=== PATIENT | female | born 1960 | race African-American/Black ===

== ENCOUNTER 2021-10-11 18:53 | Emergency (ER) | payer OTHER ==
[~2021-10-11] VITALS: Ht 163.8 cm; Wt 72.7 kg
[2021-10-11 20:25] LABS: COVID AG,FIA SOURCE NASOPHARYNGEAL
[2021-10-11 23:12] VITALS: BP 144/95
== END 2021-10-11 23:13 | disposition home or self-care (01) ==
LOC: EMS 18:59
DX: J18.9 Pneumonia, unspecified organism (principal); Z20.822 Contact with and (suspected) exposure to COVID-19
CPT/HCPCS: 71045; 87426; 99284; U0003

== ENCOUNTER 2022-11-26 17:22 | Emergency (ER) | payer OTHER ==
[~2022-11-26] VITALS: Ht 162.6 cm; Wt 68.2 kg
[2022-11-26 18:02] LABS: COVID AG,FIA SOURCE NASOPHARYNGEAL
[2022-11-26] MEDS ORDERED: NIRM1TAB PO (19:59)
[2022-11-26 20:00] VITALS: BP 135/99
== END 2022-11-26 21:00 | disposition home or self-care (01) ==
LOC: EMS 17:38
DX: U07.1 COVID-19 (principal); F17.210 Nicotine dependence, cigarettes, uncomplicated; Z90.710 Acquired absence of both cervix and uterus; C80.1 Malignant (primary) neoplasm, unspecified; Z88.5 Allergy status to narcotic agent
CPT/HCPCS: 71045; 99284

== ENCOUNTER 2024-10-30 06:32 | Inpatient (IN) | payer MEDICARE, OTHER ==
[~2024-10-30] VITALS: Ht 157.5 cm; Wt 61.9 kg
[~2024-10-30 06:32] MED LIST: NIRM1TAB4 PO
[2024-10-30 06:59] LABS: COVID AG,FIA SOURCE NASAL SWAB
[2024-10-30] MEDS ORDERED: 0.9% SODIUM CHLORIDE 5 ML NEB SOLUTION NEB ONE (07:12)
[2024-10-30] MEDS: ALBUTEROL SULFATE 2.5 MG/0.5 ML NEB SOLUTION NEB ONE (07:14)
[2024-10-30] MEDS: IPRATROPIUM BROMIDE 0.5 MG/2.5 ML NEB SOLUTION NEB ONE (07:14)
[2024-10-30 07:15] VITALS: PULSE 81; RESP 22; O2SAT 93
[2024-10-30 07:19] LABS: BASOPHILS % (AUTO) 0.8 % (0.0-2.0); EOSINOPHILS % (AUTO) 3.2 % (1.0-6.0); HEMATOCRIT 36.2 % (36-46); HEMOGLOBIN 11.8 g/dL (12.0-16.0); LYMPHOCYTES # (AUTO) 2.4 K/uL (1.0-4.8); LYMPHOCYTES % (AUTO) 38.7 % (22.0-44.0); MEAN CORPUSCULAR HEMOGLOBIN 27.9 pg (26.0-34.0); MEAN CORPUSCULAR HGB CONC 32.7 G/dL (31.0-37.0); MEAN CORPUSCULAR VOLUME 85 fL (80-100); MONOCYTES # (AUTO) 0.5 K/uL (0.1-1.0); MONOCYTES % (AUTO) 7.4 % (2.0-9.0); NEUTROPHILS # (AUTO) 3.1 K/uL (1.8-7.7); NEUTROPHILS % (AUTO) 49.9 % (40.0-70.0); PLATELET COUNT (AUTO) 318 K/uL (150-450); RED BLOOD CELL COUNT(AUTO) 4.24 MIL/uL (4.00-5.20); RED CELL DISTRIBUTION WIDTH 15.1 % (11.5-14.5); WHITE BLOOD COUNT (AUTO) 6.1 K/uL (4.5-11.0)
[2024-10-30 07:22] LABS: INFLUENZA TYPE A NEGATIVE FOR TYPE A (NEGATIVE); INFLUENZA TYPE B NEGATIVE FOR TYPE B (NEGATIVE); SARS-COV2 (COVID) ANTIGEN,FIA Negative (Negative)
[2024-10-30 07:27] VITALS: PULSE 80; RESP 22; O2SAT 100
[2024-10-30 07:31] LABS: ANION GAP 11 mmol/L (8-16); CALCIUM, TOTAL 8.7 mg/dL (8.8-10.5); CARBON DIOXIDE 28 mmol/L (22-29); CHLORIDE 104 mmol/L (98-107); CREATININE 0.86 mg/dL (0.60-1.30); GLOMERULAR FILTR. RATE CALC > 60 mL/min (>60); GLUCOSE,RANDOM 96 mg/dL (70-110); POTASSIUM 3.8 mmol/L (3.5-5.1); SODIUM SERUM 143 mmol/L (136-145); UREA NITROGEN, BLOOD 12 mg/dL (7-18)
[2024-10-30 07:36] LABS: TROPONIN I-HIGH SENSITIVITY 118 ng/L (<51)
[2024-10-30 07:40] LABS: PROTHROMBIN TIME 10.9 SEC (9.4-11.6)
[2024-10-30 07:54] LABS: CREATINE KINASE, TOTAL ONLY 99 U/L (26-192)
[2024-10-30 07:55] LABS: B-TYPE NATRIURETIC PEPTIDE 464 pg/mL (0-100)
[2024-10-30] MEDS: NITROGLYCERIN 2% (1 GM=INCH) OINTMENT PACKET TP ONE (08:20)
[2024-10-30] MEDS: FUROSEMIDE 40 MG/4 ML VIAL IVP ONE (08:20)
[2024-10-30] MEDS: ASPIRIN 81 MG CHEWABLE TABLET PO ONE ×2 (08:20→12:01)
[2024-10-30] MEDS: MORPHINE SULFATE 2 MG/ML SYRINGE IVP ONE (08:51)
[2024-10-30] MEDS: LORazepam 1 MG TABLET PO ONE (08:51)
[2024-10-30] MEDS: ONDANSETRON HCL 4 MG/2 ML VIAL IVP ONE (08:54)
[2024-10-30 09:07] LABS: D-DIMER 0.68 mg/L FEU (0.00-0.50)
[2024-10-30] MEDS ORDERED: 0.9% SODIUM CHLORIDE 10 ML SYRINGE IVP PRN (09:15)
[2024-10-30] MEDS: SODIUM CHLORIDE 0.9% 250 ML IV ONE (09:15)
[2024-10-30 09:33] LABS: TROPONIN I-HIGH SENSITIVITY 147 ng/L (<51)
[2024-10-30 09:58] LABS: ANION GAP 6 mmol/L (8-16); CALCIUM, TOTAL 8.4 mg/dL (8.8-10.5); CARBON DIOXIDE 29 mmol/L (22-29); CHLORIDE 105 mmol/L (98-107); CREATININE 0.76 mg/dL (0.60-1.30); GLOMERULAR FILTR. RATE CALC > 60 mL/min (>60); GLUCOSE,RANDOM 107 mg/dL (70-110); POTASSIUM 3.7 mmol/L (3.5-5.1); SODIUM SERUM 140 mmol/L (136-145); UREA NITROGEN, BLOOD 13 mg/dL (7-18)
[2024-10-30 10:04] LABS: ALANINE AMINOTRANSFERASE 32 U/L (12-78); ALBUMIN 3.6 g/dL (3.4-5.0); ALKALINE PHOSPHATASE 102 U/L (46-116); ASPARTATE AMINOTRANSFERASE 26 U/L (15-37); BILIRUBIN,TOTAL 0.7 mg/dL (0.1-1.0); LACTATE DEHYDROGENASE 427 U/L (81-234); TOTAL PROTEIN, SERUM 7.6 g/dL (6.4-8.2)
[2024-10-30 10:07] LABS: TROPONIN I-HIGH SENSITIVITY 147 ng/L (<51)
[2024-10-30 11:59] LABS: LACTIC ACID 0.8 mmol/L (0.4-2.0)
[2024-10-30 15:06] VITALS: BP 127/77; PULSE 66; RESP 18; TEMP 98.2; O2SAT 96
[2024-10-30] MEDS ORDERED: ACETAMINOPHEN 325 MG TABLET PO PRN (15:15)
[2024-10-30] MEDS ORDERED: [UNRECOGNIZED DRUG - OTHER] PO SCH (15:15)
[2024-10-30 15:46] VITALS: BP 121/69; PULSE 78; RESP 17; TEMP 97.8; O2SAT 90
[2024-10-30] MEDS: CefTRIAXone 1 GM/DEXTROSE 50 ML IV SCH (17:44)
[2024-10-30] MEDS: HEPARIN SODIUM,PORCINE 5,000 UNITS/ML VIAL SQ SCH (17:45)
[2024-10-30] MEDS: AZITHROMYCIN 500 MG/NS 250 ML IV SCH (17:45)
[2024-10-30] MEDS: MORPHINE SULFATE 2 MG/ML SYRINGE IVP PRN (18:14)
[2024-10-30 19:56] VITALS: BP 108/64; PULSE 74; RESP 20; TEMP 98.4; O2SAT 95
[2024-10-30] MEDS: FUROSEMIDE 20 MG/2 ML VIAL IVP SCH (20:59)
[2024-10-31] VITALS (9 sets, daily range): BP systolic 112–129; BP diastolic 64–77; PULSE 75–92; RESP 16–20; TEMP 97.5–99.1; O2SAT 90–98
[2024-10-31] MEDS: IPRATROPIUM BROMIDE 0.5 MG/2.5 ML NEB SOLUTION NEB PRN (00:23)
[2024-10-31] MEDS: ALBUTEROL SULFATE 2.5 MG/0.5 ML NEB SOLUTION NEB PRN (00:23)
[2024-10-31 03:06] LABS: BASOPHILS %-(REF. LAB) 0 % (Not Estab.); EOSINOPHILS %-(REF. LAB) 3 % (Not Estab.); EOSINOPHILS ABSOLUTE(REF. LAB) 0.2 x10E3/uL (0.0-0.4); IMMATR GRANULOCYT %-(REF. LAB) 0 % (Not Estab.); LYMPHOCYTES %-(REF. LAB) 45 % (Not Estab.); MEAN CELL HEMOGLOB-(REF. LAB) 27.5 pg (26.6-33.0); MEAN CELL HGB CONC-(REF. LAB) 31.7 g/dL (31.5-35.7); MEAN CELL VOLUME-(REF. LAB) 87 fL (79-97); MONOCYTES %-(REF. LAB) 7 % (Not Estab.); MONOCYTES ABSOLUTE(REF. LAB) 0.4 x10E3/uL (0.1-0.9); NEUTOPHILS %-(REF. LAB) 45 % (Not Estab.); REDC DISTRIB. WIDTH-(REF. LAB) 13.7 % (11.7-15.4)
[2024-10-31 06:32] LABS: BASOPHILS % (AUTO) 0.5 % (0.0-2.0); EOSINOPHILS % (AUTO) 2.1 % (1.0-6.0); HEMATOCRIT 34.5 % (36-46); HEMOGLOBIN 11.2 g/dL (12.0-16.0); LYMPHOCYTES # (AUTO) 2.1 K/uL (1.0-4.8); LYMPHOCYTES % (AUTO) 33.3 % (22.0-44.0); MEAN CORPUSCULAR HEMOGLOBIN 28.1 pg (26.0-34.0); MEAN CORPUSCULAR HGB CONC 32.5 G/dL (31.0-37.0); MEAN CORPUSCULAR VOLUME 87 fL (80-100); MONOCYTES # (AUTO) 0.5 K/uL (0.1-1.0); MONOCYTES % (AUTO) 8.2 % (2.0-9.0); NEUTROPHILS # (AUTO) 3.5 K/uL (1.8-7.7); NEUTROPHILS % (AUTO) 55.9 % (40.0-70.0); PLATELET COUNT (AUTO) 321 K/uL (150-450); RED BLOOD CELL COUNT(AUTO) 3.99 MIL/uL (4.00-5.20); RED CELL DISTRIBUTION WIDTH 15.1 % (11.5-14.5); WHITE BLOOD COUNT (AUTO) 6.3 K/uL (4.5-11.0)
[2024-10-31 07:05] LABS: ANION GAP 6 mmol/L (8-16); CALCIUM, TOTAL 8.5 mg/dL (8.8-10.5); CARBON DIOXIDE 34 mmol/L (22-29); CHLORIDE 105 mmol/L (98-107); CHOL/HDL RATIO 2.4 (3.9-5.7); CHOLESTEROL 138 mg/dL (131-200); CREATININE 0.95 mg/dL (0.60-1.30); GLOMERULAR FILTR. RATE CALC > 60 mL/min (>60); GLUCOSE,RANDOM 92 mg/dL (70-110); HDL CHOLESTEROL 57 mg/dL (40-60); LDL CHOL (CALC.) 71 mg/dL (0-130); POTASSIUM 4.1 mmol/L (3.5-5.1); SODIUM SERUM 145 mmol/L (136-145); TRIGLYCERIDES 52 mg/dL (15-150); UREA NITROGEN, BLOOD 12 mg/dL (7-18)
[2024-10-31 07:09] LABS: TROPONIN I-HIGH SENSITIVITY 118 ng/L (<51)
[2024-10-31] MEDS: ASPIRIN 81 MG DR TABLET PO SCH (08:36)
[2024-10-31] MEDS: ATORVASTATIN CALCIUM 20 MG TABLET PO SCH (08:36)
[2024-10-31] MEDS: SPIRONOLACTONE 25 MG TABLET PO SCH (08:37)
[2024-10-31] MEDS: LOSARTAN POTASSIUM 25 MG TABLET PO SCH (08:38)
[2024-10-31] MEDS: METOPROLOL SUCCINATE 25 MG ER TABLET PO SCH (08:38)
[2024-10-31] MEDS ORDERED: ATORVASTATIN CALCIUM 40 MG TABLET PO SCH (09:00)
[2024-10-31] MEDS: BENZONATATE 100 MG CAPSULE PO SCH (09:29)
[2024-10-31] MEDS: HYDROmorphone HCL 2 MG/ML SYRINGE IVP ONE (09:29)
[2024-10-31 13:06] LABS: ABSOLUTE CD4 COUNT 1422 /uL (359-1519); ABSOLUTE CD8 SUPPRESSOR 380 /uL (109-897); CD4:CD8 RATIO 3.75 (0.92-3.72); PERCENT CD4 POS.LYMPH. 54.7 % (30.8-58.5); PERCENT CD8 POS. LYMPH. 14.6 % (12.0-35.5)
[2024-10-31] MEDS: DiphenhydrAMINE HCL 50 MG/ML VIAL IVP ONE (22:50)
[2024-11-01 07:38] LABS: BASOPHILS % (AUTO) 0.9 % (0.0-2.0); EOSINOPHILS % (AUTO) 2.6 % (1.0-6.0); HEMATOCRIT 35.8 % (36-46); HEMOGLOBIN 11.8 g/dL (12.0-16.0); LYMPHOCYTES # (AUTO) 2.8 K/uL (1.0-4.8); LYMPHOCYTES % (AUTO) 45.9 % (22.0-44.0); MEAN CORPUSCULAR HGB CONC 32.9 G/dL (31.0-37.0); MEAN CORPUSCULAR VOLUME 85 fL (80-100); MONOCYTES # (AUTO) 0.5 K/uL (0.1-1.0); MONOCYTES % (AUTO) 8.2 % (2.0-9.0); NEUTROPHILS # (AUTO) 2.6 K/uL (1.8-7.7); NEUTROPHILS % (AUTO) 42.4 % (40.0-70.0); PLATELET COUNT (AUTO) 315 K/uL (150-450); RED BLOOD CELL COUNT(AUTO) 4.22 MIL/uL (4.00-5.20); RED CELL DISTRIBUTION WIDTH 15.1 % (11.5-14.5); WHITE BLOOD COUNT (AUTO) 6.1 K/uL (4.5-11.0)
[2024-11-01 07:39] VITALS: BP 122/73; PULSE 74; RESP 20; TEMP 97.5; O2SAT 97
[2024-11-01 07:45] LABS: ANION GAP 6 mmol/L (8-16); CALCIUM, TOTAL 8.7 mg/dL (8.8-10.5); CARBON DIOXIDE 35 mmol/L (22-29); CHLORIDE 101 mmol/L (98-107); CREATININE 0.75 mg/dL (0.60-1.30); GLOMERULAR FILTR. RATE CALC > 60 mL/min (>60); GLUCOSE,RANDOM 90 mg/dL (70-110); POTASSIUM 4.2 mmol/L (3.5-5.1); SODIUM SERUM 141 mmol/L (136-145); UREA NITROGEN, BLOOD 15 mg/dL (7-18)
[2024-11-01] MEDS: FUROSEMIDE 20 MG TABLET PO SCH (08:43)
[2024-11-01] MEDS ORDERED: INFLUENZA VIRUS VACCINE TVS (6MO+) 2024-25/PF 45 MCG/0.5 ML SYRINGE IM. ONE (10:15)
[2024-11-01] MEDS: IBUPROFEN 400 MG TABLET PO ONE (10:55)
[2024-11-01] MEDS: EMPAGLIFLOZIN 10 MG TABLET PO SCH (10:56)
[2024-11-01 12:54] VITALS: O2SAT 95
[2024-11-01] MEDS: MethylPREDNISolone SOD SUCC 125 MG/2 ML VIAL IVP SCH (13:03)
[2024-11-01] MEDS ORDERED: SODIUM CHLORIDE 0.9% 500 ML IV ONE (16:19)
[2024-11-01 16:30] VITALS: BP 133/68; PULSE 75; RESP 18; TEMP 97.6; O2SAT 99
[2024-11-01] MEDS: ALBUTEROL SULFATE 2.5 MG/0.5 ML NEB SOLUTION NEB SCH (19:00)
[2024-11-01 20:13] VITALS: BP 142/62; PULSE 93; RESP 18; TEMP 98.1; O2SAT 97
[2024-11-01] MEDS: MORPHINE SULFATE 2 MG/ML SYRINGE IVP ONE (21:00)
[2024-11-02] VITALS (22 sets, daily range): BP systolic 112–140; BP diastolic 60–78; PULSE 67–90; RESP 18–20; TEMP 97.5–98.5; O2SAT 91–100
[2024-11-02 07:02] LABS: BASOPHILS % (AUTO) 0.4 % (0.0-2.0); EOSINOPHILS % (AUTO) 0 % (1.0-6.0); HEMATOCRIT 35.7 % (36-46); HEMOGLOBIN 11.9 g/dL (12.0-16.0); LYMPHOCYTES % (AUTO) 12.4 % (22.0-44.0); MEAN CORPUSCULAR HEMOGLOBIN 28.4 pg (26.0-34.0); MEAN CORPUSCULAR HGB CONC 33.2 G/dL (31.0-37.0); MEAN CORPUSCULAR VOLUME 86 fL (80-100); MONOCYTES # (AUTO) 0.4 K/uL (0.1-1.0); MONOCYTES % (AUTO) 4.5 % (2.0-9.0); NEUTROPHILS # (AUTO) 6.5 K/uL (1.8-7.7); NEUTROPHILS % (AUTO) 82.7 % (40.0-70.0); PLATELET COUNT (AUTO) 351 K/uL (150-450); RED BLOOD CELL COUNT(AUTO) 4.17 MIL/uL (4.00-5.20); RED CELL DISTRIBUTION WIDTH 14.6 % (11.5-14.5); WHITE BLOOD COUNT (AUTO) 7.8 K/uL (4.5-11.0)
[2024-11-02 07:13] LABS: ANION GAP 7 mmol/L (8-16); CALCIUM, TOTAL 9.1 mg/dL (8.8-10.5); CARBON DIOXIDE 31 mmol/L (22-29); CHLORIDE 102 mmol/L (98-107); GLOMERULAR FILTR. RATE CALC > 60 mL/min (>60); GLUCOSE,RANDOM 119 mg/dL (70-110); SODIUM SERUM 140 mmol/L (136-145); UREA NITROGEN, BLOOD 19 mg/dL (7-18)
[2024-11-02] MEDS ORDERED: SODIUM BICARBONATE 50 MEQ/50 ML VIAL ONE (14:38)
[2024-11-02] MEDS ORDERED: LIDOCAINE/PF 1% 30 ML VIAL ONE (14:38)
[2024-11-02] MEDS ORDERED: HEPARIN SODIUM 1000 UNITS/NS 1,000 ML ONE (14:38)
[2024-11-02] MEDS ORDERED: NITROGLYCERIN 50 MG/D5% WATER 250 ML ONE (14:38)
[2024-11-02] MEDS ORDERED: VERAPAMIL HCL 2.5 MG/ML 2 ML VIAL ONE (14:38)
[2024-11-02] MEDS ORDERED: IOHEXOL 300 MG/ML 100 ML VIAL ONE (14:38)
[2024-11-02] MEDS ORDERED: MIDAZOLAM HCL 2 MG/2 ML VIAL ONE (15:08)
[2024-11-02] MEDS ORDERED: FentaNYL CITRATE PF 100 MCG/2 ML VIAL ONE (15:08)
[2024-11-02] MEDS: LIDOCAINE 1% 30 ML/SOD BICARB 8.4% 4 ML SQ ONE (15:31)
[2024-11-02] MEDS: IOHEXOL 300 MG/ML 100 ML VIAL IARTER ONE (15:31)
[2024-11-02] MEDS: HEPARIN SODIUM 1000 UNITS/NS 1,000 ML IARTER ONE (15:32)
[2024-11-02] MEDS: VERAPAMIL HCL 2.5 MG/ML 2 ML VIAL IARTER ONE (15:32)
[2024-11-02] MEDS: HEPARIN SODIUM,PORCINE 1,000 UNITS/ML 10 ML VIAL IARTER ONE (15:32)
[2024-11-02] MEDS: FentaNYL CITRATE PF 100 MCG/2 ML VIAL IVP ONE (15:33)
[2024-11-02] MEDS: MIDAZOLAM HCL 2 MG/2 ML VIAL IVP ONE (15:33)
[2024-11-02] MEDS: NITROGLYCERIN/D5W 50 MG/250 ML IV BOTTLE IARTER ONE (15:33)
[2024-11-02] MEDS ORDERED: SODIUM CHLORIDE 0.9% 500 ML IV ONE (17:12)
[2024-11-02] MEDS: MELATONIN 3 MG TABLET PO PRN (20:21)
[2024-11-03 03:48] VITALS: BP 122/75; PULSE 83; RESP 18; TEMP 98.6; O2SAT 96
[2024-11-03 07:13] LABS: BASOPHILS % (AUTO) 0.4 % (0.0-2.0); EOSINOPHILS % (AUTO) 0.2 % (1.0-6.0); HEMATOCRIT 34.1 % (36-46); LYMPHOCYTES # (AUTO) 2.5 K/uL (1.0-4.8); LYMPHOCYTES % (AUTO) 18.9 % (22.0-44.0); MEAN CORPUSCULAR HEMOGLOBIN 27.4 pg (26.0-34.0); MEAN CORPUSCULAR HGB CONC 32.2 G/dL (31.0-37.0); MEAN CORPUSCULAR VOLUME 85 fL (80-100); MONOCYTES # (AUTO) 0.8 K/uL (0.1-1.0); MONOCYTES % (AUTO) 6.3 % (2.0-9.0); NEUTROPHILS # (AUTO) 9.7 K/uL (1.8-7.7); NEUTROPHILS % (AUTO) 74.2 % (40.0-70.0); PLATELET COUNT (AUTO) 327 K/uL (150-450); RED BLOOD CELL COUNT(AUTO) 4.01 MIL/uL (4.00-5.20); RED CELL DISTRIBUTION WIDTH 15.1 % (11.5-14.5); WHITE BLOOD COUNT (AUTO) 13.1 K/uL (4.5-11.0)
[2024-11-03 07:15] VITALS: PULSE 83; RESP 18; O2SAT 97
[2024-11-03 07:23] LABS: ANION GAP 5 mmol/L (8-16); CALCIUM, TOTAL 8.5 mg/dL (8.8-10.5); CARBON DIOXIDE 32 mmol/L (22-29); CHLORIDE 104 mmol/L (98-107); CREATININE 0.79 mg/dL (0.60-1.30); GLOMERULAR FILTR. RATE CALC > 60 mL/min (>60); GLUCOSE,RANDOM 96 mg/dL (70-110); POTASSIUM 3.8 mmol/L (3.5-5.1); SODIUM SERUM 141 mmol/L (136-145); UREA NITROGEN, BLOOD 23 mg/dL (7-18)
[2024-11-03 07:30] VITALS: PULSE 83; RESP 18; O2SAT 100
[2024-11-03 08:42] VITALS: BP 128/69; PULSE 78; RESP 18; TEMP 98.4; O2SAT 95
[2024-11-03 11:19] VITALS: BP 119/68; PULSE 75; RESP 18; TEMP 98.1; O2SAT 97
[2024-11-03] MEDS ORDERED: ALBU18HF12 IH (12:40)
[2024-11-03] MEDS ORDERED: METO25XL PO (12:40)
[2024-11-03] MEDS ORDERED: AMOX-457 PO (12:40)
[2024-11-03] MEDS ORDERED: ATOR20TA65 PO (12:40)
[2024-11-03] MEDS ORDERED: BENZ-227 PO (12:40)
[2024-11-03] MEDS ORDERED: SPIR-37 PO (12:40)
[2024-11-03] MEDS ORDERED: PRED-554 PO (12:40)
[2024-11-03] MEDS ORDERED: ASPI-1444 PO (12:40)
[2024-11-03] MEDS ORDERED: EMPA10TA3 PO (12:40)
[2024-11-03] MEDS ORDERED: MELA3TAB89 PO (12:40)
[2024-11-03] MEDS ORDERED: LOSA-417 PO (12:40)
[2024-11-03] MEDS ORDERED: FURO20TA4 PO (12:40)
== END 2024-11-03 15:25 | disposition home or self-care (01) | DRG 280 ==
LOC: EMS 06:36 → EDH 12:16 → 5N 14:30 → 4E 10-31 18:50 → 5S 11-02 16:24
PROVIDERS: ADMIT Internal Medicine; ATTEND Internal Medicine
PROC: B2111ZZ Fluoroscopy of Multiple Coronary Arteries using Low Osmolar Contrast (ICD-10-PCS; principal; 2024-11-02)
PROC: 4A023N7 Measurement of Cardiac Sampling and Pressure, Left Heart, Percutaneous Approach (ICD-10-PCS; 2024-11-02)
DX: I11.0 Hypertensive heart disease with heart failure (principal); I50.23 Acute on chronic systolic (congestive) heart failure; I21.A1 Myocardial infarction type 2; J18.9 Pneumonia, unspecified organism; J96.01 Acute respiratory failure with hypoxia; J44.0 Chronic obstructive pulmonary disease with (acute) lower respiratory infection; Z20.822 Contact with and (suspected) exposure to COVID-19; E11.9 Type 2 diabetes mellitus without complications; I35.1 Nonrheumatic aortic (valve) insufficiency; F15.10 Other stimulant abuse, uncomplicated; F17.210 Nicotine dependence, cigarettes, uncomplicated; Z85.41 Personal history of malignant neoplasm of cervix uteri; Z88.5 Allergy status to narcotic agent; Z90.711 Acquired absence of uterus with remaining cervical stump; Z86.16 Personal history of COVID-19
CPT/HCPCS: 70450; 71045; 71250; 80048; 80053; 80061; 82550; 83605; 83615; 83735; 83880; 84145; 84484; 85025; 85379; 85610; 85730; 86360; 87040; 87420; 87804; 93005; 93306; 94640; 99285; G0378; J0456; J0696; J1171; J1200; J1644; J1940; J2250; J2270; J2405; J2919; J3010; J3490; J7030; J7040; Q9967; 36415-L1; 36415-TC; J7613; Z7610